=== PATIENT | male | born 1935 | race Caucasian/White ===

== ENCOUNTER 2017-12-03 15:39 | Emergency (ER) | payer MEDICARE ==
[~2017-12-03 15:39] MED LIST: ALLOPURINOL300 MG PO; AMIODARONE HCL200 MG PO; ASPIRIN81 M1 PO; ATORVASTATIN CA20 MG PO; ESIDRIX25 MG PO; LASIX40 MG PO; LOSARTAN POTASS25 MG PO; MELOXICAM7.5 MG PO; NIACIN100 MG PO; POTASSIUM CHLO10 ME1 PO; PRILOSEC20 MG PO; TIZANIDINE HCL4 MG PO; TOPROL XL50 MG PO; TYLENOL WITH C1 EACH PO; VICODIN 5-5001 EACH PO; ZOCOR20 MG PO; eliquis PO
== END 2017-12-03 17:18 | disposition left against medical advice (07) ==
LOC: ER 15:39
DX: M79.605 Pain in left leg (principal)